=== PATIENT | female | born 2000 | race Caucasian/White ===

== ENCOUNTER 2019-12-07 22:05 | Emergency (ER) | payer OTHER ==
[~2019-12-07] VITALS: Ht 162.6 cm; Wt 56.7 kg
--- OUTSIDE RECORDS SUMMARY | ~2019-12-07 | XMS | Encounter Summary ---
Demographics + + + | Address | [address] | | | [place] [address] | + + + | Home Phone | | + + + | Preferred Language | Unknown | + + + | Marital Status | Single | + + + | Anabaptism Affiliation | NRP | + + + | Race | White | + + + | Ethnic Group | Not or | + + + Author + + + | Organization | Unknown | + + + | Address | Unknown | + + + | Phone | Unavailable | + + + Support + + + + + | Name | Relationship | Address | Phone | + + + + + | Juan Sanchez | ECON | [address] | | | | [place] | | | | | [address] | | + + + + + Care Team Providers + +------+ + | Care Cutlet Maker Pork Name | Role | Phone | + +------+ + | No Pcp Per Patient | PCP | Unavailable | + +------+ + Encounter Details +--------+--------+ + + + | Date | Type | Department | Care Team | Description | +--------+--------+ + + + | 12/06/ | Travel | | | | | 2020 | | | | | +--------+--------+ + + + Social History + +-------+ +--------+------+ | Tobacco Use | Types | Packs/Day | Years | Date | | | | | Used | | + +-------+ +--------+------+ | Never Smoker | | | | | + +-------+ +--------+------+ + +---+---+---+ | Smokeless Tobacco: | | | | | Never Used | | | | + +---+---+---+ + + +---------+ + | Alcohol Use | Drinks/Week | oz/Week | Comments | + + +---------+ + | Yes | | | | + + +---------+ + + + + | Sex Assigned at | Date Recorded | | | | + + + | Not on file | | + + + + + + + | Job Start Date | Occupation | Industry | + + + + | Not on file | Not on file | Not on file | + + + + + + + + | Travel History | Travel Start | Travel End | + + + + + + | No recent travel history available. | + + + + + + | COVID-19 Exposure | Response | Date Recorded | + + + + | In the last month, have you been in contact | No / Unsure | 12/07/2019 4:28 PM | | with someone who was confirmed or | | PDT | | suspected to have Coronavirus / COVID-19? | | | + + + + documented as of this encounter Plan of Treatment Not on filedocumented as of this encounter Visit Diagnoses Not on filedocumented in this encounter"
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
--- OUTSIDE RECORDS SUMMARY | ~2019-12-07 | XMS | Encounter Summary ---
Demographics + + + | Address | [address] | | | [place] [address] | + + + | Home Phone | | + + + | Preferred Language | Unknown | + + + | Marital Status | Single | + + + | Christianity Affiliation | NRP | + + + [...] [place] | | | | | [address] | | + + + + + Care Team Providers + +------+ + | Care Cooperative Extension Agent Name | Role | Phone | + [...]
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
[~2019-12-07 22:05] MED LIST: DAY TIME COLD-237 ML PO; NORCO 5-325 TA1 EACH PO; VITAMIN C100 MG PO
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
== END 2019-12-08 00:44 | disposition home or self-care (01) ==
LOC: ED 22:05
DX: S50.02XA Contusion of left elbow, initial encounter (principal); Z88.0 Allergy status to penicillin; V89.2XXA Person injured in unspecified motor-vehicle accident, traffic, initial encounter
CPT/HCPCS: 73080; 99283-25; A9270